=== PATIENT | female | born 1995 | race Caucasian/White ===

== ENCOUNTER 2021-12-12 20:18 | Observation (INO) | payer MEDICAID, OTHER ==
[~2021-12-12] VITALS: Ht 158 cm; Wt 80.7 kg
[2021-12-12 21:29] VITALS: BP 105/62
[2021-12-16] MEDS ORDERED: PNV91TAB10 PO (10:08)
== END 2021-12-12 23:20 | disposition home or self-care (01) ==
LOC: MLD 20:18
PROVIDERS: ADMIT Obstetrics & Gynecology; ATTEND Obstetrics & Gynecology
DX: O62.9 Abnormality of forces of labor, unspecified (principal); Z3A.40 40 weeks gestation of pregnancy
CPT/HCPCS: 76815; G0378; Q0092; 59025; 81000